=== PATIENT | female | born 1950 | race Caucasian/White ===

== ENCOUNTER 2020-02-22 08:59 | Day surgery (SDC) | payer OTHER ==
[~2020-02-22 08:59] MED LIST: SODIUM CHLORIDE 0.9% 1000 ML 1,000 ML IV SCH
--- NOTE | 2020-02-22 11:14 | Anesthesia Day of Surgery ---
Anesthesia Day of Surgery - Day of Surgery Patient Examined: Yes Patient H&P Reviewed: Yes Patient is NPO: Yes
--- NOTE | 2020-02-22 11:15 | Anesthesia Consultation ---
Anesthesia Consult and Med Hx Date of service: 02/22/20 - Airway Anesthetic Teeth Evaluation: Good, Caps ROM Head & Neck: Adequate Mental/Hyoid Distance: Adequate Mallampati Class: Class II Intubation Access Assessment: Probably Good - Pre-Operative Health Status ASA Pre-Surgery Classification: ASA2 Proposed Anesthetic Plan: MAC - Additional Comments Anesthesia Medical History Comments: Negative medical history. [place]-speaking only. Son at bedside to translate.
[2020-02-22] MEDS ORDERED: LIDOCAINE MPF (2%) 20 MG/1 ML VIAL 5 ML ONE (12:12)
[2020-02-22] MEDS ORDERED: ONDANSETRON 4 MG/2 ML INJ ONE (12:12)
[2020-02-22] MEDS ORDERED: fentaNYL 100 MCG/2 ML INJ ONE (12:13)
[2020-02-22] MEDS ORDERED: propofoL 200 MG/20 ML VIAL IV ONE (12:13)
--- NOTE | 2020-02-22 12:38 | Procedure Note ---
Date of procedure: 02/22/20 Pre-op diagnosis: Epigastric Pain Post-op diagnosis: other (No Peptic Ulcer disease noted/Moderate,Erosive Essophagitis/Gastritis) Procedure: EGD with Biopsy Anesthesia: MAC Surgeon: SHADY JENNINGS Estimated blood loss: minimal Pathology: list Specimen disposition: to lab Condition: stable Disposition: same day (Treat with PPI and OTC Probiotic. Avoid aspirin and NSAID and anticoagulants for 4 days; otherwise resume home medication. Follow up in 1 to 2 weeks ([phone]).)
--- NOTE | 2020-02-22 12:51 | Operative Report ---
PROCEDURE: Esophagogastroduodenoscopy with biopsy. INDICATIONS: This is a 69-year-old female who has been complaining of epigastric pain and discomfort. She states she had a colonoscopy done few months earlier, which was essentially unremarkable. EGD was done to make sure there was not any significant upper GI pathology present. DESCRIPTION OF PROCEDURE: The procedure was done after getting informed consent with MAC anesthesia. Instrument was passed through the hypopharynx into the esophagus, which showed some moderate distal erosive esophagitis for photo documentation and biopsy was done in the stomach showed antral gastritis. The pylorus was patent. The duodenum in the first and second portion appeared normal. Biopsy was done from the gastric antrum, gastric body and angular incisura to rule out for H. pylori and atrophic gastritis. ASSESSMENT: Epigastric pain, no peptic ulcer disease noted, mild to moderate erosive esophagitis, gastritis. PLAN: To treat the patient with PPI, have the patient avoid aspirin and aspirin-related products for the next few days. Encouraged the patient to take probiotics and follow up in the office in 1-2 weeks' time. The procedure was done in the GI lab with assistance of the GI lab team, which included erica Jade with assistance of anesthesia. JOB# [id number] HARITHA/BRANDON
[2020-02-22 13:26] VITALS: BP 133/71
--- NOTE | 2020-02-22 13:41 | History and Physical Report ---
HISTORY OF PRESENT ILLNESS: This is a 69-year-old female who has limited knowledge of Bengali. She has lately been having some abdominal pain and is being assessed for a possible peptic ulcer disease. She states that she had a colonoscopy done earlier this year, which was essentially unremarkable. She has been having problems with indigestion. SOCIAL HISTORY: Denies history of smoking, but admits to drinking alcohol, no cardiac issues. No flu shots. ALLERGIES: No known allergies. PHYSICAL EXAMINATION: VITAL SIGNS: Temperature is 97.8, blood pressure 147/85, pulse is 72, height is 5 feet 5 inches, weight is 160 pounds. HEENT: Shows no JVD. LUNGS: Clear to auscultation. CARDIOVASCULAR: Grossly normal. ABDOMEN: Shows some epigastric tenderness to palpation. No rebound. Bowel sounds present. EXTREMITIES: No pedal edema. NEUROLOGIC: The patient is otherwise alert and oriented. ASSESSMENT: Abdominal pain, peptic ulcer disease, EGD at [facility] on 02/22/2020 and continue with present treatment. Thank you for the kind referral. JOB# [id number] HARITHA/BRANDON
--- NOTE | 2020-02-22 14:09 | Post Anesthesia Evaluation ---
- Post Anesthesia Evaluation Patient Participated: Yes Airway Patent: Yes Stable Respiratory Function: Yes Nausea/Vomiting: No Temp > 96.8F: Yes Pain Manageable: Yes Adequeate Hydration: Yes Anesthesia Complications: No Block Receding Appropriately: Not Applicable Patient on Ventilator: No
== END 2020-02-22 09:00 | disposition home or self-care (01) ==
LOC: GIO 08:59
DX: R10.13 Epigastric pain (principal); K21.0 Gastro-esophageal reflux disease with esophagitis; K29.50 Unspecified chronic gastritis without bleeding; Z79.899 Other long term (current) drug therapy
CPT/HCPCS: 43239; 88305; 88342; J2405; J2704; J3010; J7030